=== PATIENT | male | born 1990 | race Hispanic/Latino ===

== ENCOUNTER 2024-04-22 07:39 | Emergency (ER) | payer SELFPAY ==
[2024-04-22 07:45] VITALS: BP 156/103
[2024-04-22] MEDS: NSS 1000 IV (08:13)
[2024-04-22] MEDS: TORADOL 15 MG IV (08:13)
[2024-04-22] MEDS: ZOFRAN 4 MG IV (08:13)
[2024-04-22 08:14] VITALS: BMI 39.8
[2024-04-22] MEDS: DILAUDID 1 MG IV (08:14)
--- NOTE | 2024-04-22 08:20 | ED.GENMED ---
History of Present Illness
General
Chief Complaint: Flank Pain
Source: patient
Exam Limitations: none
Time Seen by Provider: 04/22/24 07:50
Nursing documentation reviewed up to this point in time: agreed with
History of Present Illness
History of Present Illness:
33 y/o M with h/o 1 previous kidney stone last year, passed on own, no urologist
says he was at work 1 hr [employer] and suddenly had L back pain reminding him of previous kidney stone. mild nausea, no vomiting, no dysuria, able to urinate, no blood
no diarrhea
nothing taken for pain
no fever/chills
Past History
Past History
ED Past Medical History: Other (kidney stone)
Review of Systems
Review of Systems
Allergies reviewed?: Yes
All Other Systems: Not applicable
Phy Exam
Physical Exam
Physical Exam:
GENERAL: Alert, uncomfortable
Neck: supple
CARDIAC: Regular rate and rhythm .
LUNGS: Clear breath sounds bilaterally, no acute respiratory distress, no wheezes/rales/rhonchi
ABDOMEN: Soft, normal bowel sounds, nondistended, no abdominal tenderness, no guarding, no rebound, neg hightower's
: normal inspection of region
nontender testicles b/l
no rashes
NEUROLOGICAL: Alert and oriented, no focal neuro deficits
SKIN: Warm and dry, skin intact.
PSYCH: Normal and appropriate interaction.
Course
Orders/Labs/Results
Orders:
Orders
04/22/24 07:58
CT Abd/pel Without Iv Or Oral Urgent
Comment:
Reason For Exam: L flank pain, h/o kidney stone in past
0.9% Sodium Chloride 1000 ml [Nss] 1,000 ml IV BOLUS
HYDROmorphone [Dilaudid] 1 mg IV NOW STA
Ketorolac [Toradol] 15 mg IV NOW STA
Ondansetron Injectable [Zofran] 4 mg IV NOW STA
04/22/24 08:12
Complete Blood Count/With Diff Urgent
Comprehensive Metabolic Panel Urgent
04/22/24 08:21
Urinalysis Reflex To Culture Urgent
Date Specimen was Collected: 04/22/24
Time Specimen was Collected: 08:19
Urine Microscopic Reflex Cult Urgent
04/22/24 09:11
Tamsulosin [Flomax] 0.4 mg PO NOW STA
04/22/24 10:46
Ondansetron Orally Disint [Zofran Odt (Orally Disintegrating)] 4 mg PO NOW STA
Abnormal Lab Results
04/22/24 04/22/24
08:12 08:21
WBC 12.0 H 10^3/uL
(4.8-10.8)
Abs Immat Gran (auto) 0.1 H 10^3/uL
(0-0.05)
Absolute Neuts (auto) 7.5 H 10^3/uL
(1.4-6.5)
Absolute Monos (auto) 1.4 H 10^3/uL
(0.1-0.6)
Immature Gran % 0.6 H %
(0-0.5)
Monocytes % 11.4 H %
(1.7-9.3)
Glucose 116 H mg/dl
(70-99)
Ur Occult Blood Reflex 1+ A
(Negative)
Leukocyte Esterase Rfl Trace A
(Negative)
Urine RBC 3-6 A /HPF
(0-2)
04/22/24 08:12
04/22/24 08:12
Vital Signs
Initial and Last Documented VS:
Initial Vital Signs
Temp Pulse Resp BP Pulse Ox
99.1 F 78 18 156/103 100
04/22/24 07:45 04/22/24 07:45 04/22/24 07:45 04/22/24 07:45 04/22/24 07:45
Last Documented Vital Signs
Temp Pulse Resp BP Pulse Ox
99.1 F 78 18 138/79 97
04/22/24 07:45 04/22/24 07:45 04/22/24 07:45 04/22/24 10:00 04/22/24 10:00
MDM/Problems Addressed
Differential Diagnosis Includes:
kidney stone, uti, msk pain
MDM/Problems Addressed:
33 y/o M with h/o kidney stone once previously
here with L flank pian suddenly while at work today
diaphroetic uncomfortable
peeing ok
afebrile
hypertensive initially likely related to pain
abdomen nontender
urine without signs of infecion
mild leukocytosis
cr normal
ct shows L mid ureteral 2.8 mm stone with hydro
pt given flomax and ivf and ultimately passed the stone prior to d/c
he did get briefly naueated and sweaty after iv lienp ulled but got odt and was watched a bit and did well
ambulated steadily well appearing
no pain.
*Critical Care Note
Total Time (30-74mins, 75-104mins- exclusive of procedures): Not Applicable
ED Attending Note
-
Portions of this chart may have been created with voice recognition software.� Occasional wrong word or��sound alike� substitutions may have occurred due to the inherent limitations of voice recognition software.
Discharge Plan
Departure
Patient Disposition: Home (Routine Discharge)
Date of Disposition: 04/22/24
Time of Disposition: 09:39
Patient with high blood pressure during this ER visit?: Yes
Condition: Fair
Covid-19: Not Applicable
Discharge Problem:
Kidney stone
Instructions: Kidney Stones (DC), How to Strain Your Urine, BLOOD PRESSURE
Prescriptions:
New
tamsulosin [Flomax] 0.4 mg capsule
0.4 mg PO DAILY Qty: 14 0RF
oxycodone 5 mg tablet
5 mg PO Q8H PRN (Reason: Pain) Qty: 10 0RF
Referrals:
Beto Duggan MD [Active] - Follow up in 5-7 days
Activity Restrictions/Additional Instructions:
YOU HAVE A 2.8 MM STONE MID LEFT URETER WHICH SHOULD PASS
KEEP STAYING HYDRATED
TAKE FLOMAX 0.4 MG ONCE A DAY UNTIL YOU PASS THE STONE
URINATE THROUGH THE STRAINER EACH TIME YOU PEE
TAKE TYLENOL 2 EXTRA STRENGTH TABS 3 TIMES A DAY FOR PAIN
YOU CAN ALSO TRY MOTRIN 800 MG EVERY 8 HOURS WITH FOOD 2-3 TIMES A DAY NEEDED
IF PAIN IS SEVERE YOU CAN TRY OXYCODONE 5 MG EVERY 6 HOURS NEEDED, THIS IS A NARCOTIC AND YOU CANNOT DRIVE OR DRINK ON THIS MEDICATION.
RETURN FOR: SEVERE PAIN, VOMITING, FEVER, NOT URINATING OR ANY CONCERNS.
OTHERWISE FOLLOW UP WITH YOUR UROLOGIST.
Interventions
Interventions:
*Risk Screen - Suicide Last Done: 04/22/24 07:45
*General Assessment Last Done: 04/22/24 07:45
*Neglect/Abuse Screening Last Done: 04/22/24 07:45
ED- Fall Risk Assessment Last Done: 04/22/24 11:26
*ED COVID-19 Vaccine History Last Done: 04/22/24 09:23
*Nursing Disposition Last Done: 04/22/24 11:26
GW-Setjlo-Tsltrmjnpx Assessment Last Done: 04/22/24 10:45
ED-Male Genitourinary Assessment Last Done: 04/22/24 10:46
Discharge Date and Time
Discharge Date/Time: 04/22/24 11:27
Print Language: CZECH
[2024-04-22 08:32] LABS: Urine Albumin Trace (Neg - Trace); Urine Bilirubin Negative (Negative); Urine Character Clear (Clear); Urine Color Yellow; Urine Glucose Negative (Negative); Urine Ketone Negative (Negative); Urine Leukocyte Trace (Negative); Urine Nitrite Negative (Negative); Urine Occult Blood 1+ (Negative); Urine Specific Gravity 1.015 (<1.030); Urine Urobilinogen Negative (Neg - 1+); Urine pH 6.5 (5.0-9.0)
[2024-04-22 08:33] LABS: % Basophils 0.7 % (0-2); % Eosinophils 0.9 % (0-6); % Immature Granulocytes 0.6 % (0-0.5); % Lymphocytes 24.1 % (20.5-51.1); % Monocytes 11.4 % (1.7-9.3); % Neutrophils 62.3 % (42.2-75.2); Absolute Basophils 0.1 10^3/uL (0-0.2); Absolute Eosinophils 0.1 10^3/uL (0-0.7); Absolute Immature Granulocytes 0.1 10^3/uL (0-0.05); Absolute Lymphocytes 2.9 10^3/uL (1.2-3.4); Absolute Monocytes 1.4 10^3/uL (0.1-0.6); Absolute Neutrophils 7.5 10^3/uL (1.4-6.5); Hematocrit 44.1 % (39.0-52.0); Hemoglobin 15.3 g/dL (13.0-18.0); Mean Corp Hgb Conc. 34.7 g/dL (33.0-37.0); Mean Corpuscular Hgb 30.5 pg (27.0-31.0); Mean Corpuscular Volume 87.8 fL (80.0-94.0); Mean Platelet Volume 10.3 fL (7.4-10.4); Nucleated Red Blood Cells % 0 % (-); Platelet Count 317 10^3/uL (130-400); Red Blood Cell Count 5.02 10^6/uL (4.70-6.10); Red Cell Dist. Width 12.4 % (11.5-14.5)
[2024-04-22 08:47] LABS: ALT (SGPT) 35 U/L (0-50); AST (SGOT) 41 U/L (17-59); Albumin 4.7 g/dl (3.5-5.0); Alkaline Phosphatase 102 U/L (38-126); Blood Urea Nitrogen 18 mg/dl (9-20); Calcium 10.1 mg/dl (8.4-10.2); Carbon Dioxide 24 mmol/L (22-30); Chloride 104 mmol/L (98-107); Estimated Creatinine Clearance > 125 ml/min; Glucose 116 mg/dl (70-99); Potassium 3.9 mmol/L (3.5-5.1); Sodium 138 mmol/L (135-145); Total Bilirubin 0.4 mg/dl (0.2-1.3); Total Protein 7.8 g/dl (6.3-8.2); eGFR > 60.00
[2024-04-22 08:49] LABS: Urine Mucus Few
[2024-04-22 08:52] LABS: Urine Amorphous Seen; Urine White Cell 0-2 /HPF (0-5)
[2024-04-22] MEDS: FLOMAX 0.4 MG PO (09:33)
[2024-04-22 09:34] VITALS: BP 127/86
[2024-04-22 10:00] VITALS: BP 138/79
[2024-04-22] MEDS: ZOFRAN ODT (ORALLY DISINTEGRATING) 4 MG PO (10:48)
== END 2024-04-22 11:27 | disposition home or self-care (01) ==
LOC: EMR 07:39
PROVIDERS: Physician Assistant; EMERGENCY PHYSICIAN Student in an Organized Health Care Education/Training Program
DX: N13.2 Hydronephrosis with renal and ureteral calculous obstruction (principal); R11.0 Nausea; R42 Dizziness and giddiness; R03.0 Elevated blood-pressure reading, without diagnosis of hypertension; Z87.442 Personal history of urinary calculi
CPT/HCPCS: 99284; 96374; 96375 ×2; 96361; 74176; 80053; 81003; 81015; 85025